=== PATIENT | female | born 1935 | race Caucasian/White ===

== ENCOUNTER 2016-09-19 06:10 | Emergency (ER) | payer MEDICARE, OTHER ==
[~2016-09-19] VITALS: Ht 160 cm; Wt 74.0 kg
[~2016-09-19 06:10] MED LIST: ASPI81 PO; CLOP75 PO; LEVA750T9 PO; METO25 PO; NYST100010 PO; OMEP20CA5 PO; PACE200T4 PO; TAB-TAB PO; ZITH500T PO; ZOCO40TA PO
[2016-09-19 06:13] VITALS: BP 138/85; PULSE 68; RESP 18; TEMP 98; O2SAT 95
[2016-09-19] MEDS ORDERED: ASPI1TAB69 PO (06:27)
[2016-09-19] MEDS ORDERED: PACE200T PO (06:27)
[2016-09-19] MEDS ORDERED: ZOCO40TA PO (06:27)
[2016-09-19] MEDS ORDERED: PRIL20CA9 PO (06:27)
[2016-09-19] MEDS ORDERED: METO25TA3 PO (06:27)
[2016-09-19] MEDS ORDERED: COUM5TAB PO (06:27)
[2016-09-19] MEDS ORDERED: MULT1TAB84 PO (06:27)
[2016-09-19] MEDS ORDERED: FURO1TAB60 PO (06:47)
[2016-09-19 06:56] VITALS: BP 132/62; PULSE 61; RESP 18; O2SAT 95
[2016-09-19 07:04] VITALS: BP 122/58; PULSE 57; RESP 18; TEMP 97.8; O2SAT 98
--- NOTE | 2016-09-19 07:07 | PD ---
HPI Chief Complaint: Respiratory Symptoms Time Seen by Provider: 07:06 Travel History International Travel<30 days: No Contact w/Intl Traveler<30days: No Traveled to known affect area: No History of Present Illness HPI 81-year-old female came to the emergency room with history of sudden onset shortness of breath and nausea last night. This started around 11:00 last night. Patient denies any chest pain. She had to sit up in order to breathe better. She was unable to sleep the entire night. This morning she decided to come to the emergency room. When I went to see the patient she was laying on the stretcher comfortable with no significant distress. She admitted that the shortness of breath was little better. Vital signs were stable. Patient says she has history of congestive heart failure and since this is her congestive heart failure flare up again. She had a mitral valve replacement surgery done 7 -8 years ago. She has been seeing a hospice art therapist in [facility] in [place]. Patient is from [place]. Her last cardiac catheterization was 7 years ago which showed mild coronary artery disease. She has had cardiac ablations for atrial fibrillation. [facility] Past Medical History Narrative Medical List of her past medical, surgical and social history is reviewed from the nursing note. 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) High Cholesterol: Yes Chemotherapy: Yes Congestive Heart Failure: No Diabetes: No Diminished Hearing: No Endocrine: Yes Gastrointestinal Disorders: Yes GERD: Yes Glaucoma: No Genitourinary: No Headaches: Yes Hepatitis: No Hiatal Hernia: Yes Hypertension: Yes Immune Disorder: No Musculoskeletal: Yes Neurologic: Yes Psychiatric: No Reproductive: No Respiratory: No Radiation Therapy: No Sickle Cell Disease: No Thyroid Disease: Yes (THYROIDECTOMY) Ulcer: Yes Tetanus Vaccination: Unknown Influenza Vaccination: No Menopausal: Yes Past Surgical History Cardiac Surgery: Yes (ABLASION FOR A FIB/MITRAL VALVE REPLACEMENT) Cholecystectomy: No Endocrine Surgery: Yes (THYROIDECTOMY PARTICAL 1954) Gynecologic Surgery: Yes (HYSTERECTOMY) Hysterectomy: Yes (1979) Mastectomy: Yes (RIGHT DUE TO CA) Other Surgery: Yes (RIGHT MASTECTOMY) Social History Alcohol Use: No Tobacco Use: No Substance Use: No Allergies-Medications (Allergen,Severity, Reaction): Coded Allergies: No Known Allergies (Verified , 09/19/16) Uncoded Allergies: METAL (Adverse Reaction, Unknown, 08/26/09) Comments No known drug allergies. Reported Meds & Prescriptions Reported Meds & Active Scripts Active Reported Lasix (Furosemide) 40 Mg Tab 40 Mg PO BID Metoprolol Tartrate 25 Mg Tab 25 Mg PO BID Multivitamin Adults (Multiple Vitamins W/ Minerals) 1 Tab 1 Tab PO DAILY Prilosec (Omeprazole) 20 Mg Cap 20 Mg PO DAILY Zocor (Simvastatin) 40 Mg Tab 40 Mg PO DAILY Coumadin (Warfarin) 5 Mg Tab 5 Mg PO DAILY Aspirin 81 Mg Tabdr 81 Mg PO DAILY Pacerone (Amiodarone HCl) 200 Mg Tab 200 Mg PO DAILY Narrative Medication List of her home medications reviewed from the nursing note. Review of Systems Except as stated in HPI: all other systems reviewed are Neg Physical Exam Narrative GENERAL: Awake, alert, elderly, anxious, mild distress SKIN: Warm and dry. HEAD: Atraumatic. Normocephalic. EYES: Pupils equal and round. No scleral icterus. No injection or drainage. ENT: No nasal bleeding or discharge. Mucous membranes pink and moist. NECK: Trachea midline. No JVD. CARDIOVASCULAR: Regular rate and rhythm. No murmur appreciated. RESPIRATORY: No accessory muscle use. Clear to auscultation. Breath sounds equal bilaterally. GASTROINTESTINAL: Abdomen soft, non-tender, nondistended. Hepatic and splenic margins not palpable. MUSCULOSKELETAL: No obvious deformities. No clubbing. No cyanosis. No edema. NEUROLOGICAL: Awake and alert. No obvious cranial nerve deficits. Motor grossly within normal limits. Normal speech. PSYCHIATRIC: Appropriate mood and affect; insight and judgment normal. Data Data Last Documented VS Vital Signs Date Time Temp Pulse Resp B/P Pulse Ox O2 Delivery O2 Flow Rate FiO2 09/19/16 08:43 98.3 56 18 123/84 100 Room Air Orders Electrocardiogram (09/19/16 07:17) Basic Metabolic Panel (Bmp) (09/19/16 07:17) B-Type Natriuretic Peptide (09/19/16 07:17) Ckmb (Isoenzyme) Profile (09/19/16 07:17) Complete Blood Count With Diff (09/19/16 07:17) Magnesium (Mg) (09/19/16 07:17) Prothrombin Time / Inr (Pt) (09/19/16 07:17) Act Partial Throm Time (Ptt) (09/19/16 07:17) Troponin I (09/19/16 07:17) Chest, Single Ap (09/19/16 07:17) Ecg Monitoring (09/19/16 07:17) Bilateral Bp Monitoring (09/19/16 07:17) Iv Access Insert/Monitor (09/19/16 07:17) Oximetry (09/19/16 07:17) Oxygen Administration (09/19/16 07:17) Sodium Chloride 0.9% Flush (Ns Flush) (09/19/16 07:30) Potassium Chloride (Kcl) (09/19/16 10:00) Acetaminophen (Tylenol) (09/19/16 10:00) Ondansetron Inj (Zofran Inj) (09/19/16 10:00) Labs Laboratory Tests Test 09/19/16 09/19/16 09/19/16 07:30 08:10 08:40 White Blood Count 5.3 TH/MM3 Red Blood Count 3.60 MIL/MM3 Hemoglobin 11.6 GM/DL Hematocrit 33.7 % Mean Corpuscular Volume 93.6 FL Mean Corpuscular Hemoglobin 32.2 PG Mean Corpuscular Hemoglobin 34.4 % Concent Red Cell Distribution Width 13.6 % Platelet Count 161 TH/MM3 Mean Platelet Volume 8.5 FL Neutrophils (%) (Auto) 69.3 % Lymphocytes (%) (Auto) 21.5 % Monocytes (%) (Auto) 7.3 % Eosinophils (%) (Auto) 0.8 % Basophils (%) (Auto) 1.1 % Neutrophils # (Auto) 3.7 TH/MM3 Lymphocytes # (Auto) 1.1 TH/MM3 Monocytes # (Auto) 0.4 TH/MM3 Eosinophils # (Auto) 0.0 TH/MM3 Basophils # (Auto) 0.1 TH/MM3 CBC Comment DIFF FINAL Differential Comment B-Type Natriuretic Peptide 99 PG/ML Prothrombin Time 35.5 SEC Prothromb Time International 3.1 RATIO Ratio Activated Partial 38.0 SEC Thromboplast Time Sodium Level 143 MEQ/L Potassium Level 3.3 MEQ/L Chloride Level 105 MEQ/L Carbon Dioxide Level 31.0 MEQ/L Anion Gap 7 MEQ/L Blood Urea Nitrogen 21 MG/DL Creatinine 1.08 MG/DL Estimat Glomerular Filtration 49 ML/MIN Rate Random Glucose 103 MG/DL Calcium Level 8.8 MG/DL Magnesium Level 2.0 MG/DL Total Creatine Kinase 78 U/L Troponin I LESS THAN 0.02 NG/ML [facility] Medical Decision Making Medical Screen Exam Complete: Yes Emergency Medical Condition: Yes Medical Record Reviewed: Yes Interpretation(s) Twelve-lead EKG was reviewed by me. Normal sinus rhythm, left axis deviation, interventricular conduction delay, first-degree AV block, bradycardia, diffuse T -wave inversion which seems changed from the last EKG which was from August 2009. Heart rate of 59 bpm. Differential Diagnosis ACS, congestive heart failure, non-STEMI Narrative Course 9:08 AM awaiting for the chemistry and cardiac enzymes. CBC, BNP were within normal limits. Chest x-ray showed cardiomegaly but otherwise no acute changes. Her doctor's office was called to fax a latest EKG on her since the one in our record was from 7 years ago. They did fax a twelve-lead EKG which does not look much different from the EKG done today. In other words that 12-lead EKG has diffuse T-wave inversions as well. This EKG is from 07/30/2016. Patient does have risk factors for acute coronary syndrome. Given my physical exam, blood test and chest x-ray does not show congestive heart failure. I would like to admit her for possible angina variant for the shortness of breath. 10:23 AM the patient was told about her blood test results. Once again there is a possibility of angina. Of the shortness of breath since there is no other explanation. I wanted her to be admitted for overnight observation which patient has refused. She is in full capacity to make decisions for herself. She understands the risks of leaving including . She will sign AMA. She said she would call her hospice art therapist in [place] and discuss it with her. Procedures EKG Prior to Arrival: Yes Diagnosis Primary Impression: Respiratory distress Disposition: 07 AGAINST MEDICAL ADVICE Condition: Serious Heath Houston MD Sep 19, 2016 07:07
[2016-09-19] MEDS ORDERED: SODIUM CHLORIDE 0.9% FLUSH 5 ML FLUSH IVF PRN (07:30)
[2016-09-19 07:41] LABS: AUTOMATED NEUTROPHIL # 3.7 TH/MM3 (1.8-7.7); BASOPHIL # 0.1 TH/MM3 (0-0.2); BASOPHIL % 1.1 % (0.0-2.0); EOSINOPHIL % 0.8 % (0.0-4.0); HEMATOCRIT 33.7 % (35.0-46.0); HEMO FLAGS DIFF FINAL; LYMPH % 21.5 % (9.0-44.0); LYMPHOCYTE # 1.1 TH/MM3 (1.0-4.8); MEAN CELL VOLUME 93.6 FL (80.0-100.0); MEAN CORPUSCULAR HEMOGLOBIN 32.2 PG (27.0-34.0); MEAN CORPUSCULAR HGB CONC 34.4 % (32.0-36.0); MONO % 7.3 % (0.0-8.0); NEUT % 69.3 % (16.0-70.0); PLATELET COUNT 161 TH/MM3 (150-450); RED CELL DISTRIBUTION WIDTH 13.6 % (11.6-17.2); WHITE BLOOD COUNT 5.3 TH/MM3 (4.0-11.0)
--- NOTE | 2016-09-19 07:54 | RADRPT ---
EXAM DATE/TIME: 09/19/2016 07:27 [facility] COMPARISON: No previous studies available for comparison. INDICATIONS : Patient has felt short of breath since last night. MEDICAL HISTORY : None. SURGICAL HISTORY : Mitral valve replacement. ENCOUNTER: Initial ACUITY: 1 day PAIN SCORE: 0/10 LOCATION: chest FINDINGS: A single view of the chest demonstrates cardiomegaly and previous median sternotomy. Lungs are clear. . Osseous structures are intact. CONCLUSION: 1. Cardiomegaly and previous median sternotomy. Sam Lama MD on September 19, 2016 at 7:52 Board Certified Radiologist. This report was verified electronically.
[2016-09-19 08:41] VITALS: BP 123/84; PULSE 57; RESP 18; TEMP 98.3; O2SAT 100; O2SAT 99
[2016-09-19 08:43] VITALS: BP 123/84; PULSE 56; RESP 18; TEMP 98.3; O2SAT 100
[2016-09-19 09:08] LABS: INTERNATIONAL NORMALIZED RATIO 3.1 RATIO; PROTHROMBIN TIME - PATIENT 35.5 SEC (9.8-11.6)
[2016-09-19 09:27] LABS: ANION GAP 7 MEQ/L (5-15); BLOOD UREA NITROGEN 21 MG/DL (7-18); CHLORIDE 105 MEQ/L (98-107); CREATINE KINASE 78 U/L (26-192); GLOMERULAR FILTRATION RATE 49 ML/MIN (>89); POTASSIUM 3.3 MEQ/L (3.5-5.1); SODIUM (NA) 143 MEQ/L (136-145)
--- NOTE | 2016-09-19 09:31 | EKG ---
Date Performed: 09/19/2016 Time Performed: 06:42:20 PTAGE: 81 years EKG: Sinus rhythm WITH FIRST DEGREE AV BLOCK MODERATE INTRAVENTRICULAR CONDUCTION DELAY ST DEVIATION AND MODERATE T-WA VE ABNORMALITY, CONSIDER ANTERIOR ISCHEMIA ABNORMAL ECG NO PREVIOUS TRACING DOCTOR: Edenilson Yin Interpretating Date/Time 09/19/2016 09:30:43
[2016-09-19] MEDS ORDERED: ACETAMINOPHEN 325 MG TAB PO ONE (10:00)
[2016-09-19] MEDS ORDERED: POTASSIUM CHLORIDE 20 MEQ CONTROLLED RELEASE TAB PO ONE (10:00)
[2016-09-19] MEDS ORDERED: ONDANSETRON HCL 4 MG/2 ML VIAL IV PUSH ONE (10:00)
== END 2016-09-19 11:15 | disposition left against medical advice (07) ==
LOC: NEPC 06:10
DX: R06.00 Dyspnea, unspecified (principal); I10 Essential (primary) hypertension; I48.91 Unspecified atrial fibrillation; E78.00 Pure hypercholesterolemia, unspecified; I44.0 Atrioventricular block, first degree; R94.31 Abnormal electrocardiogram [ECG] [EKG]
CPT/HCPCS: 71010; 80048; 82550; 83735; 83880; 84484; 85025; 85610; 85730; 93005; 96374; 99285; J2405